=== PATIENT | female | born 1975 | race Caucasian/White ===

== ENCOUNTER 2019-02-16 03:31 | Emergency (ER) | payer MEDICAID, SELFPAY ==
[2019-02-16 03:32] VITALS: BP 165/94; PULSE 82; RESP 15; TEMP 36.8; O2SAT 97; BMI 45.6
[2019-02-16 04:07] VITALS: BP 164/94; PULSE 82; RESP 15; O2SAT 97
--- NOTE | 2019-02-16 04:08 | ED.VISSUMM ---
- ER Visit Summary Date of Service: 02/16/19 Chief Complaint: Dental pain, decay and right facial swelling History of Present Illness: The patient is a 43 F no C significant past medical history other than prior kidney stones and a prior intracranial bleed. Patient states she has very poor dentition does not go to the doctor or have a dentist. States she is had dental pain the last several days. She is tried home remedies and is only gotten worse. She now some mild right facial swelling. No trouble breathing or swallowing. No fever. Physical Examination: White female no acute distress vital signs stable afebrile. HEENT exam mild swelling her right cheek. She has multiple missing teeth. Multiple decayed teeth multiple areas of the gum are swollen. No drainable abscess. No trismus. Floor of her mouth is unremarkable. Posterior pharynx is normal. Neck nontender. No submental tenderness or fullness. No lymphadenopathy. Trachea midline. Lungs are clear to auscultation bilaterally. Heart regular rhythm no murmur. Abdomen is soft. Otherwise exam unremarkable. Test Results: None Emergency Department Course and Treatment: Patient has obvious dental decay, cavities and gingivitis. She will be placed on clindamycin 300 mg 4 times daily for 10 days. Instructed to follow-up with a dentist. Tylenol Motrin for pain. She has a severe penicillin allergy. Treatment Plan: Clindamycin 4 times daily for 10 days. Tylenol and Motrin for pain. See a dentist. Warm salt water gargling. Disposition: Discharge Impression: Acute dental pain Acute dental caries, decay and gingivitis This note was generated with [employer] dictation software. It may contain incorrect words, spelling, and punctuation that were not noted in review of the chart prior to signing ED Disposition - Plan for ED Patient: Referrals: Care Physician,No Primary [Primary Care Provider] -
--- NOTE | 2019-02-16 04:10 | ED.DEP ---
ED Disposition - Plan for ED Patient: Disposition: Home or Assisted Living Instructions: Dental Pain, Dental Cavity, Dental Abscess Prescriptions: Clindamycin HCl [Cleocin] 300 mg PO Q6H #40 cap Prescription Printed Referrals: Joselin Murry [NON-STAFF] - As soon as possible Additional Instructions: Warm salt water gargling. See a dentist as soon as possible to start [facility]. Tylenol and Motrin for pain. Clindamycin the antibiotic 1 pill 4 times a day for 10 days.
[2019-02-16] MEDS: Clindamycin HCl 150 MG Capsule 300 MG PO (04:16)
== END 2019-02-16 04:26 | disposition home or self-care (01) ==
LOC: ED 04:24
PROVIDERS: Emergency Provider Emergency Medicine
DX: K05.10 Chronic gingivitis, plaque induced (principal); K02.9 Dental caries, unspecified; Z86.73 Personal history of transient ischemic attack (TIA), and cerebral infarction without residual deficits; Z87.442 Personal history of urinary calculi
CPT/HCPCS: 99283

== ENCOUNTER 2019-08-26 16:55 | Emergency (ER) | payer MEDICAID, SELFPAY ==
[2019-07-17 11:05] VITALS: BMI 45.6
[2019-08-26 16:55] VITALS: BP 160/76; PULSE 92; RESP 18; TEMP 36.7; O2SAT 97; BMI 43.2
[2019-08-26 18:01] VITALS: O2SAT 98
--- NOTE | 2019-08-26 18:05 | RAD_ITS ---
STUDY: X-RAY CHEST REASON FOR EXAM: Female, 44 years old. Fever. COVID exposure. TECHNIQUE: Frontal view of the chest COMPARISON: None. FINDINGS: There is patchy airspace opacity in the left mid to lower lung field. The lungs are otherwise clear. There are no pleural effusions. There is no pneumothorax. The heart is normal in size. The visualized osseous structures are within normal limits. RAD/Chest 1 View (Portable) IMPRESSION: Patchy airspace opacity in the left mid to lower lung field. COVID infection should be excluded. Electronically Signed: Darin Downing, at 18:31 EDT Tel , Service support ,
[2019-08-26 18:18] LABS: Absolute Lymphocyte Count 1.58 X10^3/uL (0.83-4.51); Absolute Neutrophil Count 3.4 X10^3/uL (2.0-7.7); Basophil# 0.02 X10^3/uL; Basophil% 0.4 % (0-1); Eosinophil# 0.07 X10^3/uL; Eosinophils% 1.2 % (0-5); Hematocrit 45.4 % (37-47); Hemoglobin 13.8 g/dL (12.0-15.0); Lymphocyte # 1.58 X10^3/ul (4.0); Lymphocyte % 28.2 % (19-41); Mean Corp Hgb Conc 30.4 g/dL (32-36); Mean Corpuscular Hgb 24.6 pg (27.0-32.0); Mean Corpuscular Volume 81.1 fL (81-99); Monocyte# 0.53 X10^3/uL; Monocyte% 9.4 % (0-10); NRBC Flagged by Analyzer 0 % (0-5); Neutrophil # 3.39 X10^3/uL (2.7-7.7); Neutrophil % 60.4 % (47-70); Platelet Count 276 K/mm3 (150-450); RBC Distribution Width CV 14.3 % (11.6-14.6); RBC Distribution Width SD 42.2 fl (35.1-43.9); White Blood Count 5.6 K/mm3 (4.4-11.0)
[2019-08-26 18:37] LABS: D-Dimer Quantitative (DVT/PE) 0.72 FEU/ug/m (0.27-0.49)
--- NOTE | 2019-08-26 18:38 | ED.VISSUMM ---
- ER Visit Summary Date of Service: 08/26/19 Chief Complaint: Cough History of Present Illness: The patient is a 44 F with no primary care physician. She reports that her daughter was diagnosed with COVID-19. She is been quarantined for 10 days. She has a cough began 4 days ago. She is not coughing anything up. She complains of a fever to 104 degrees and chills. She denies sore throat. She does report that she has moderate shortness of breath currently and severe at worst. This is worsened with walking around. She is had nausea without vomiting. She reports she is had diarrhea 3 times today. She reports that she has a headache on and off. She complains of generalized weakness and myalgias. Physical Examination: Vitals: Stable. Afebrile. General: Well-nourished and well-developed. Head: Normocephalic atraumatic. Neck: Supple, no lymphadenopathy. No JVD. Nontender. Cardiovascular: Regular rate and rhythm. No murmurs. Respiratory: No respiratory distress. Clear to auscultation bilaterally. Abdominal: Soft, nontender, nondistended, normal bowel sounds. No guarding, rebound, or peritoneal signs. Back: Nontender. Extremities: Nontender, no edema. Skin: Normal color, no rash. Neurologic: Alert and oriented ?3. Cranial nerves II through XII are intact. Normal strength and sensation. Psych: Normal affect. Test Results: CBC is normal. Chem-7 is normal. LFTs show globulin of 4.8 and AST of 38. D-dimer is 0.72. COVID is negative. Clinical Impression(s) from Imaging Studies Chest X-Ray 08/26/19 18:05 IMPRESSION: Patchy airspace opacity in the left mid to lower lung field. COVID infection should be excluded. Electronically Signed: Darin Downing, at 18:31 EDT Tel , Service support , Chest CTA 08/26/19 18:39 IMPRESSION: Patchy peripheral airspace opacity in the lingula and left lower lobe and, to a lesser extent, the right lung apex. This likely represents COVID pneumonia. No evidence pulmonary embolus. No evidence of thoracic aortic aneurysm or dissection. Large hiatal hernia. Hepatosplenomegaly with fatty infiltration of the liver. Electronically Signed: Darin Downing, at 19:44 EDT Tel , Service support , Emergency Department Course and Treatment: Patient refused pain medications. She is resting comfortably. She is not hypoxic. I feel that her COVID is a false negative. Her CT is classic for COVID-19. Treatment Plan: Patient will be discharged with instructions to quarantine for the next 2 weeks. Instructed on symptomatic care. Follow-up with Dr. Willis in 2 weeks if not improving. Return to the emergency department for any worsening symptoms. Disposition: To home in improved and stable condition. Impression: 1. COVID-19 infection. This note was generated with [employer] dictation software. It may contain incorrect words, spelling, and punctuation that were not noted in review of the chart prior to signing ED Disposition - Plan for ED Patient: Disposition: Home or Assisted Living Instructions: ED Upper Resp Infec No Abx Tx Referrals: Yimi Linder MD [STAFF PHYSICIAN] - 10-14 Days if not better
--- NOTE | 2019-08-26 18:39 | CT_ITS ---
STUDY: CTA CHEST REASON FOR EXAM: Female, 44 years old. ELEVATED D-DIMER, PT DAUGHTER HAS COVID, PT HAS SOB, FATIGUE, CHILLS,FEVER RADIATION DOSAGE (If Supplied By Facility): CTDIvol = ( 17.42 ) mGy, DLP = ( 512.55 ) mGycm TECHNIQUE: The examination was performed with the intravenous administration of 100ML ISOVUE 300. Post-processing of the angiographic images was performed, with multiplanar reformation and 3D reconstruction. Individualized dose optimization techniques were used for this CT. COMPARISON: None. FINDINGS: There is no evidence of pulmonary embolus. There is no evidence of thoracic aortic aneurysm or dissection. The heart and pericardium are within normal limits. There is no thoracic lymphadenopathy. There is patchy peripheral airspace opacity in the lingula and left lower lobe and, to a lesser extent, the right lung apex. There are no focal infiltrates. There are no pleural effusions. There is no pneumothorax. There is a large hiatal hernia noted. Images through the upper abdomen demonstrate hepatosplenomegaly with fatty infiltration of the liver. There are no destructive osseous lesions. CT/CTA Chest W/WO Contrast IMPRESSION: Patchy peripheral airspace opacity in the lingula and left lower lobe and, to a lesser extent, the right lung apex. This likely represents COVID pneumonia. No evidence pulmonary embolus. No evidence of thoracic aortic aneurysm or dissection. Large hiatal hernia. Hepatosplenomegaly with fatty infiltration of the liver. Electronically Signed: Darin Downing, at 19:44 EDT Tel , Service support ,
[2019-08-26 18:42] LABS: ALB/GLOB Ratio 0.7 RATIO (0.9-2.4); AST(SGOT) 38 U/L (15-37); Alanine Aminotransfer ALT/SGPT 56 U/L (13-56); Albumin, Serum 3.4 g/dL (3.2-5.0); Alkaline Phosphatase 72 U/L (45-117); Anion Gap 5 (5-15); BUN 10 mg/dL (7-18); BUN/Creat Ratio 10.4 RATIO (10-20); Calcium,Total 8.6 mg/dL (8.5-10.1); Chloride 107 mmol/L (98-107); Creatinine, Serum 0.96 mg/dL (0.55-1.02); EST Glomerular Filtration Rate 67 mL/min (>60); Est Glom Filt Rate - Afr Amer 81 mL/min (>60); Estimated Creatinine Clearance 70.74 ml/min; Globulin 4.8 g/dL (2.2-4.2); Glucose 98 mg/dL (74-106); Potassium 3.5 mmol/L (3.5-5.1); Protein, Total 8.2 g/dL (6.4-8.2); Sodium Level 141 mmol/L (136-145)
[2019-08-26 18:55] VITALS: BP 119/88; PULSE 86; RESP 22; O2SAT 97
[2019-08-26 20:41] VITALS: BP 116/71; PULSE 83; RESP 17; O2SAT 99
== END 2019-08-26 20:43 | disposition home or self-care (01) ==
LOC: ED 17:28
PROVIDERS: Emergency Provider Emergency Medicine
DX: U07.1 COVID-19 (principal); Z72.0 Tobacco use
CPT/HCPCS: 71045; 71275; 80053; 83605; 85025; 85379; 87040; 87635; 94799; 99284; G2023; Q9967; A4216; U0003

== ENCOUNTER 2020-01-08 | Emergency (ER) | payer MEDICAID, SELFPAY ==
[2020-01-08 00:01] VITALS: BP 166/89; PULSE 105; RESP 18; TEMP 36.3; O2SAT 100; BMI 44.2
[2020-01-08 00:08] VITALS: BP 166/89; PULSE 105; RESP 18; TEMP 36.3; O2SAT 100
--- NOTE | 2020-01-08 00:08 | ED.DCSUM_ITS ---
History of Present Illness Chief Complaint: Dental Informant: Patient Onset: Days Context: Gradual Onset Timing: Continuous Current Severity: Moderate Maximum Severity: Moderate Narrative: The patient is a 44-year-old female who presents to the emergency department dental abscess. She states that she has had pain intermittently for months. She states that she has widespread dental disease. Over the past 3 days, she is had worsening pain in her right upper jaw underneath her nose. She feels like she has an abscess. She denies any fevers or chills. She states is worse with hot and cold liquids. She denies any trouble speaking or swallowing. She states she does have severe penicillin allergy. She tried to get into dentistry recently, but has not been able to establish an appointment. Prior similar symptoms: Yes Recent Illness/Hospitalization: No Past Medical History - Allergies and Home Meds Allergies/Adverse Reactions: Allergies Penicillins Allergy (Severe, Verified 08/26/19 16:57) Anaphylaxis Primary Care Physician: Greg Angeles DO [Primary Care Provider] - Prior records reviewed: Yes Past Medical History: None Surgical History: noncontributory Smoking Status: Never smoker Review of Systems General: Denies: Chills, Fever, Sweats Eyes: Denies: Visual changes - bilaterally, Diplopia ENT: Denies: Rhinorrhea, Sore throat Cardiovascular: Denies: Chest pain, Palpitations Respiratory: Denies: Dyspnea, Cough, Dyspnea on exertion Gastrointestinal: Denies: Abdominal pain, Nausea, Vomiting, Diarrhea, Melena, Hematochezia Genitourinary: Denies: Dysuria, Hematuria, Frequency Musculoskeletal: Denies: Back pain, Extremity Pain Skin: Denies: Rash, Wounds Neurological: Denies: Headache, Weakness, Numbness Physical Exam Vital Signs/Narrative: Vital Signs Temp Pulse Resp BP Pulse Ox 01/08/20 00:01 97.3 F L 105 H 18 166/89 H 100 Inital Vital Signs reviewed: Yes General: Well nourished, Well developed, No Acute Distress Head: Normocephalic, Atraumatic Eyes: Perrl, EOMI ENT: Moist mucous membranes, No rhinorrhea, - - Patient has rather significant widespread dental disease. There is a mild erythema over tooth 7 and 8. There is no focal abscess. The submental space is soft. No trismus or stridor. Neck: Supple, Nontender Cardiovascular: Regular rate, Regular rhythm, No murmurs Respiratory: No distress, CTA bilaterally, Chest nontender Abdomen: Soft, Nontender, Nondistended, Normal bowel sounds Back: Nontender, Normal Inspection Extremities: Nontender, No edema Skin: Normal color, No rash Neurological: Alert, Oriented x3, Cranial nerves II-XII grossly intact, Normal Strength, Normal Sensation Psychological: Normal affect, Normal Mood Diagnostic/Tx/Re-eval - Medical Decision Making Patient has dental pain with widespread dental disease. She has significant cavity shows teeth. There is no evidence of focal abscess, but she is tender in the gumline of tooth 7 and 8 with significant cavity. Patient is given a dose of [place] and clindamycin. She will be kept on clindamycin and Naprosyn. She will be given outpatient dental follow-up. She will be discharged home. Impression 1. Periapical dental abscess ED Disposition - Plan for ED Patient: Instructions: Dental Abscess Prescriptions: Clindamycin [Cleocin] 300 mg PO 4X/DAY #80 cap Prescription Printed Naproxen [Naprosyn] 500 mg PO BID PRN #20 tab Prescription Printed Referrals: Greg Angeles DO [Primary Care Provider] -
[2020-01-08] MEDS: HYDROcodone Bitartrate/Apap 5/325 Tablet PO (00:17)
[2020-01-08] MEDS: Clindamycin HCl 150 MG Capsule 300 MG PO (00:17)
== END 2020-01-08 00:23 | disposition home or self-care (01) ==
LOC: ED 00:21
PROVIDERS: Emergency Provider Emergency Medicine; PCP Student in an Organized Health Care Education/Training Program
DX: K04.7 Periapical abscess without sinus (principal); Z88.0 Allergy status to penicillin
CPT/HCPCS: 99283

== ENCOUNTER 2020-01-16 22:41 | Emergency (ER) | payer MEDICAID, SELFPAY ==
[2020-01-16 22:43] VITALS: BP 194/115; PULSE 114; RESP 18; TEMP 36.1; O2SAT 99; BMI 44.4
--- NOTE | 2020-01-16 23:01 | ED.VIS.GEN ---
History of Present Illness Chief Complaint: Dental Informant: Patient Onset: Weeks Context: Gradual Onset Current Severity: Moderate Maximum Severity: Moderate Narrative: Patient presents with continued dental pain. She was seen here approximate 1 week ago secondary to a developing dental abscess. She was placed on clindamycin. She does have an allergy to penicillin. Patient states that she has called multiple dental clinics and cannot be seen until March. This evening she noted some swelling to her right upper lip pain along her right maxilla. She has been taking Tylenol and naproxen for pain. - Past Medical History (1) Anxiety and depression Status: Chronic Past Medical History - Allergies and Home Meds Allergies/Adverse Reactions: Allergies Penicillins Allergy (Severe, Verified 08/26/19 16:57) Anaphylaxis Primary Care Physician: Greg Angeles DO [Primary Care Provider] - Surgical History: noncontributory Smoking Status: Never smoker Review of Systems General: Denies: Chills, Fever Eyes: Denies: Visual changes - bilaterally ENT: Reports: - - Dental pain and facial swelling. Denies: Bilateral ear pain Cardiovascular: Denies: Chest pain Respiratory: Denies: Dyspnea, Cough Gastrointestinal: Denies: Abdominal pain, Vomiting, Diarrhea Skin: Denies: Rash Neurological: Denies: Headache Hematologic: Denies: Easy bruising, Easy bleeding Allergy: Denies: Uticaria Physical Exam Vital Signs/Narrative: Vital Signs Temp Pulse Resp BP Pulse Ox 01/16/20 22:43 97 F L 114 H 18 194/115 H 99 Inital Vital Signs reviewed: Yes General: Well nourished, Well developed Head: Normocephalic ENT: Moist mucous membranes, - - Multiple dental caries. Inflammation of the gums above the right maxillary central incisor. No palpable abscess. Mild facial edema on the right. No erythema. Posterior pharynx exam is normal. Neck: Supple Cardiovascular: Regular rate, Regular rhythm Respiratory: No distress, CTA bilaterally Abdomen: Soft, Nontender Extremities: Nontender Skin: Normal color Neurological: Alert, Oriented x3 Diagnostic/Tx/Re-eval - Medical Decision Making Patient does have an allergy to penicillin and is already on clindamycin. We will add doxycycline to help cover necrotizing gingivitis as a possible cause of her worsened symptoms. This will also help cover sinuses. Patient will be given a dose of [place] and doxycycline here and will be given prescriptions for the same. I will leave a message for social work to see if they can touch base with [facility] about their dental care and seeing ER patients. Patient was told she could not be seen there until next June. ED Disposition - Plan for ED Patient: Disposition: Home or Assisted Living Diagnosis: Odontalgia Instructions: ED Dental Pain, Dental Abscess Prescriptions: Doxycycline 100 mg PO BID #20 cap Transmission Status: Pending to [id number] Hydrocodone Bitart/Apap 5-325 [[place] 5MG-325MG] 1 tablet PO Q4H PRN PRN 2 Days #10 tablet PRN Reason: Pain Transmission Status: Received by [id number] Referrals: Greg Angeles DO [Primary Care Provider] -
[2020-01-16] MEDS: HYDROcodone Bitartrate/Apap 5/325 Tablet PO (23:25)
[2020-01-16] MEDS: Doxycycline 100 MG CAPSULE PO (23:25)
[2020-01-16 23:29] VITALS: BP 195/111; PULSE 79; RESP 15; O2SAT 100
== END 2020-01-16 23:39 | disposition home or self-care (01) ==
LOC: ED 23:13
PROVIDERS: Emergency Provider Emergency Medicine; PCP Student in an Organized Health Care Education/Training Program
DX: K08.89 Other specified disorders of teeth and supporting structures (principal); K02.9 Dental caries, unspecified; F41.9 Anxiety disorder, unspecified; F32.9 Major depressive disorder, single episode, unspecified; Z88.0 Allergy status to penicillin
CPT/HCPCS: 99283

== ENCOUNTER 2022-01-30 11:34 | Emergency (ER) | payer MEDICAID, SELFPAY ==
[2022-01-30 11:37] VITALS: BP 144/101; PULSE 90; RESP 14; TEMP 36.8; O2SAT 99; BMI 48.0
--- NOTE | 2022-01-30 11:55 | RAD_ITS ---
STUDY: X-RAY CHEST REASON FOR EXAM: Female, 46 years old. Cough, left-sided pleuritic chest pain TECHNIQUE: Single AP portable view of the chest. COMPARISON: 08/26/2019 FINDINGS: The lungs are clear and expanded. There is no demonstrated pleural abnormality. Normal size heart. Normal mediastinum and jd. Normal visualized pulmonary arteries. Normal visualized aortic arch and descending thoracic aorta. Normal visualized thoracic spine. Normal visualized ribs, clavicles, and shoulders. There is no demonstrated abnormality of the visualized soft tissue structures of the upper abdomen. RAD/Chest PA and Lateral IMPRESSION: Normal x-ray examination of the chest. Electronically Signed: Angel Lucio MD at 13:07 EST ,
--- NOTE | 2022-01-30 11:55 | EX.ED.DYSGE1 ---
HPI History of Present Illness Chief Complaint: Other, Pain/Inj Detail of Chief Complaint: Cough since Thanksgiving and pleuritic chest pain Informant: patient Onset/Context/Timing Onset: Weeks Context: Sudden Onset Timing: Intermittent Quality: Pleuritic Location: Left-sided chest near the outer inferior and superior quadrant of left naveen Current Severity: Mild Maximum Severity: Moderate Worsened by: Coughing, breathing and movement Relieved by: Nothing Associated Symptoms Associated Symptoms: Upper respiratory symptoms Narrative Narrative: Patient is a 46-year-old woman with history of obesity, -induced hypertension and depression with anxiety who presents with cough that started a week of Thanksgiving. The cough is essentially nonproductive. When it is productive sputum is green-colored. She denies history of PE or DVT. She is on hormonal therapy. She has had no recent surgery. She is had no recent travel. Patient does report mild congestion. She denies GI symptoms. She denies symptoms. Denies leg pain, swelling discoloration. Prior similar symptoms: Yes Recent Illness/Hospitalization: No PFSH PFSH Medical History (Updated 01/30/22 @ 13:[address] Horacio Osman MD) Anxiety with depression Brain bleed Home Medications clindamycin HCl 150 mg capsule 300 mg PO 4X/DAY #80 caps 01/08/20 [Rx Last Taken Unknown] naproxen 500 mg tablet 500 mg PO BID PRN #20 tabs 01/08/20 [Rx Last Taken Unknown] doxycycline monohydrate 100 mg capsule 100 mg PO BID #20 caps 01/16/20 [Rx Last Taken Unknown] doxycycline monohydrate 100 mg capsule 100 mg PO BID #10 CAPSULES 01/30/22 [Rx Last Taken Unknown] naproxen 500 mg tablet 500 mg PO BID #14 tabs 01/30/22 [Rx Last Taken Unknown] Allergy/AdvReac Type Severity Reaction Status Date / Time Penicillins Allergy Severe Anaphylaxis Verified 01/30/22 11:36 Family History Mother Cancer Other Diabetes Hypertension Surgical History H/O lithotripsy Social History (Updated 01/30/22 @ 11:[address] 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 ; Denies ear pain Cardiovascular Cardiovascular: Reports chest pain; Denies orthopnea, palpitations or paroxysmal nocturnal dyspnea Respiratory/Chest Respiratory/Chest: Reports cough; Denies dyspnea, dyspnea on exertion, orthopnea, paroxysmal nocturnal dyspnea or sputum Gastrointestinal Gastrointestinal: Denies abdominal pain, nausea or vomiting Genitourinary Genitourinary ED: Denies dysuria, hematuria or urinary frequency Musculoskeletal Musculoskeletal: Denies arthralgias, myalgias or neck pain Integumentary Denies Abrasions or rash Neurologic Neurologic: Denies headache(s), paresthesias or weakness Hematologic/Lymphatic Hematologic/Lymphatic: Reports systems reviewed and no addt'l complaints, except as documented EXAM Physical Exam Const Vital Signs: 01/30/22 11:37 Temperature 98.2 F Temperature Source Temporal Pulse Rate 90 Respiratory Rate 14 Blood Pressure 144/101 H Blood Pressure Mean 115 Pulse Ox 99 Oxygen Delivery Method Room Air Positive well nourished, well developed and obese Constitutional Narrative: Patient does have an nonproductive cough. General Appearance ED: well developed and NAD; Negative for cyanotic or diaphoretic Nutritional Appearance: obese HEENT Reports moist mucous membranes HEENT Narrative: Uvula midline. No erythema exudate the posterior pharynx. Head is atraumatic normocephalic. Ears are normal. Eyes PERRL and EOMs intact bilaterally General Eye ED: Negative for pale conjunctiva or scleral icterus Neck no lymphadenopathy, supple and no JVD Chest Wall inspection of chest normal and palpation of chest normal Resp normal respiratory effort and No clear to auscultation bilaterally Resp Narrative: Patient does splint with deep breathing. Auscultation: rales left base Cardio regular rate, regular rhythm, S1 normal heart sound, S2 normal heart sound and no murmurs GI normal to inspection, nondistended, normoactive bowel sounds, non-tender, non-distended and no masses; Negative for hepatosplenomegaly Back/Spine no CVA tenderness Extremity normal to inspection Extremity Narrative: There is no asymmetry, swelling, discoloration, leg vein distention, palpable cords or tenderness along the distribution of the deep venous system. Neuro oriented x3, CN's II-XII intact bilaterally and no sensory deficits noted Sensorium / Orientation: alert Motor Exam: strength 5/5 throughout Psych mental status grossly normal Skin no rashes or lesions noted, no wounds and skin turgor normal MDM MDM MDM Narrative Medical decision making narrative: Since patient has pleuritic chest pain and rales left base chest x-ray obtained to rule out pneumonia. Patient has pleurisy. D-dimer was not obtained since patient is PERC negative. Furthermore she is not hypoxic nor tachypneic. Patient was treated for bronchitis with doxycycline since she has had a cough for approximately 3 weeks. She also was treated with Naprosyn for her pleuritic chest pain Radiography Chest X-Ray - ED: 2 View and Read by ED Physician (2 view chest x-ray independently reviewed and interpreted by me as negative. Cardiac silhouette size normal. Perihilar region normal. Lung parenchyma normal. Osseous structures are normal.) Diagnostic Testing: Clinical Impression(s) from Imaging Studies Chest X-Ray 01/30/22 11:55 IMPRESSION: Normal x-ray examination of the chest. Electronically Signed: Angel Lucio MD at 13:07 EST , Discharge Plan Triage Chief Complaint: Other, Pain/Inj ED Provider: Horacio Osman Dx/Rx/DC Orders Clinical Impression: Bronchitis, Chest pain, pleuritic Instructions: ED Upper Resp Infec Abx Tx, ED Pleurisy Prescriptions: New doxycycline monohydrate 100 mg capsule 100 mg PO BID Qty: 10 0RF naproxen 500 mg tablet 500 mg PO BID Qty: 14 0RF No Action clindamycin HCl 150 MG capsule 300 mg PO 4X/DAY Qty: 80 0RF naproxen 500 MG tablet 500 mg PO BID PRN Qty: 20 0RF doxycycline monohydrate 100 MG capsule 100 mg PO BID Qty: 20 0RF Primary Care Provider: Care Physician,No Primary Referrals: Greg Angeles DO [Non-Staff] - 3-5 Days if not improving Disposition Disposition: Home, Self Care
[2022-01-30] MEDS: Naproxen 250 MG Tablet 500 MG PO ×2 (13:09→13:41)
--- NOTE | 2022-01-30 13:11 | ED.RN ---
This nurse taking over care for patient at this time
[2022-01-30] MEDS: Doxycycline 100 MG CAPSULE PO (13:41)
[2022-01-30 13:42] VITALS: BP 130/80; PULSE 95; RESP 18; O2SAT 99
== END 2022-01-30 13:42 | disposition home or self-care (01) ==
PROVIDERS: Emergency Provider Emergency Medicine; Visit Provider Emergency Medicine
DX: J40 Bronchitis, not specified as acute or chronic (principal); F17.210 Nicotine dependence, cigarettes, uncomplicated; R07.81 Pleurodynia
CPT/HCPCS: 71046; 99284

== ENCOUNTER 2022-11-04 21:14 | Emergency (ER) | payer MEDICAID, SELFPAY ==
[2022-11-04 21:24] VITALS: BP 110/63; PULSE 92; RESP 20; TEMP 36.2; O2SAT 94
--- NOTE | 2022-11-04 21:58 | CT_ITS ---
INDICATION: mental status change EXAMINATION: CT BRAIN - CT Head or Brain W/O Contrast Injection TECHNIQUE: Multiple axial images were obtained of the head without intravenous contrast. A radiation dose optimization technique was used for this scan. IV Contrast dosage and agent: None. COMPARISON: March 01, 2015 FINDINGS: BRAIN PARENCHYMA: No intra- or extra-axial hemorrhage. No evidence of acute infarct. No intracranial mass or mass effect. There is preservation of the self/white matter interface. Posterior fossa structures are unremarkable. CSF SPACES: Appropriate for age. No hydrocephalus. Basal cisterns are patent. CALVARIUM, SKULL BASE, PARANASAL SINUSES AND MASTOID AIR CELLS: High attenuation material identified within the right nasal cavity and within the right maxillary sinus with there is some mucoperiosteal thickening. Hyperdensity anterior right ethmoid sinus. Sphenoid sinuses are clear. Mastoid air cells are clear. ORBITS: Both globes, extraocular muscles, optic nerves and retrobulbar fat appear unremarkable. CT/Brain/Head without Contrast IMPRESSION: No acute intracranial hemorrhage detected. No mass lesion. Sinus disease compared to prior study. This is somewhat high density which could reflect inspissated secretions or fungal colonization. Electronically Signed: Carroll Melvin MD at 23:00 EDT ,
--- NOTE | 2022-11-04 21:59 | EKG12_ITS ---
Test Reason : Blood Pressure : / mmHG Vent. Rate : 087 BPM Atrial Rate : 087 BPM P-R Int : 178 ms QRS Dur : 090 ms QT Int : 380 ms P-R-T Axes : 047 017 041 degrees QTc Int : 457 ms Normal sinus rhythm with sinus arrhythmia Septal infarct , age undetermined Abnormal ECG Confirmed by BIANKA POSEY, MINDY ([id number]), scientific publications editor TINY NAYAK ([id number]) on 11/07/2022 2:39:56 PM Referred By: Confirmed By:MINDY CARLTON MD
[2022-11-04 22:03] VITALS: BP 137/86; PULSE 87; RESP 15; O2SAT 97
[2022-11-04] MEDS: 0.9% Normal Saline (500mL Bag) 500 ML 999 ML IV (22:21)
--- NOTE | 2022-11-04 22:32 | RAD_ITS ---
INDICATION: sob EXAMINATION/TECHNIQUE: X-RAY - XR Chest 1 View COMPARISON: January 30, 2022. FINDINGS: Cardiac silhouette and mediastinal contours are stable. Retrocardiac lucency suggests large hiatus hernia. This patient is somewhat rotated. Spinal curvature convex rightward. Lung volumes are also low and this accentuates the interstitium. Left basilar opacity is linear and is presumably atelectasis. RAD/Chest 1 View (Portable) IMPRESSION: Hiatus hernia. Low volumes. Presumed left basilar atelectasis. Electronically Signed: Carroll Melvin MD at 23:05 EDT ,
[2022-11-04 22:49] LABS: Alcohol, Blood (Medical)-Serum < 3.0 mg/dL
[2022-11-04 22:57] LABS: Internal QC Validated? YES +Cl - CLEAR BKGD; Pregnancy, Serum, hCG Quali. NEGATIVE Negative
[2022-11-04 23:04] LABS: AST(SGOT) 14 U/L (15-37); Alanine Aminotransfer ALT/SGPT 22 U/L (13-56); Albumin, Serum 3.3 g/dL (3.2-5.0); Alkaline Phosphatase 81 U/L (45-117); Anion Gap 6 (5-15); BUN 17 mg/dL (7-18); Bilirubin, Direct < 0.05 mg/dL (0.00-0.30); Calcium,Total 8.3 mg/dL (8.5-10.1); Chloride 108 mmol/L (98-107); Creatinine, Serum 1.06 mg/dL (0.55-1.02); EST Glomerular Filtration Rate 59 mL/min (>60); Est Glom Filt Rate - Afr Amer 72 mL/min (>60); Globulin 4.4 g/dL (2.2-4.2); Glucose 166 mg/dL (74-106); Lipase 22 U/L (13-75); Potassium 4.3 mmol/L (3.5-5.1); Protein, Total 7.7 g/dL (6.4-8.2); Sodium Level 139 mmol/L (136-145); Troponin-I HS < 3 pg/mL (3.0-54.0)
[2022-11-05 00:06] LABS: Color, Urine Yellow (Yellow); Glucose, Dipstick Normal (Normal); Ketone-Dipstick 5 mg/dl (Negative); Leukocyte Esterase-Dipstick 100 /ul (Negative); Mucous, Urine 0 SEEN /hpf (<or=2+); Nitrite-Dipstick Negative (Negative); Occult Blood-Urine 10 /ul (Negative); Protein-Dipstick 15 mg/dl (Negative); Red Blood Cells-Urine 0 SEEN /hpf (0-5); Urine Bilirubin Dipstick Negative (Negative); Urine Clarity Clear (Clear); Urine Urobilinogen Normal (Normal)
--- NOTE | 2022-11-05 00:19 | EX.ED.DYSGE1 ---
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 Her father and daughter are at bedside. 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 Nursing staff tells me that when the patient came in she told them that one of the patrons at the bar gave her an edible gummy that she ate. Shortly after this she started feeling lightheaded and weak. She reportedly went to the end of the bar and laid her head down. [facility] Medical History (Updated 11/05/22 @ 00:[address] Kiersten Fernández MD) Anxiety with depression Brain bleed Home Medications clindamycin HCl 150 mg capsule 300 mg (2 x 150 mg) PO 4X/DAY #80 caps 01/08/20 [Rx Last Taken Unknown] naproxen 500 mg tablet 500 mg PO BID PRN #20 tabs 01/08/20 [Rx Last Taken Unknown] doxycycline monohydrate 100 mg capsule 100 mg PO BID #20 caps 01/16/20 [Rx Last Taken Unknown] doxycycline monohydrate 100 mg capsule 100 mg PO BID #10 CAPSULES 01/30/22 [Rx Last Taken Unknown] naproxen 500 mg tablet 500 mg PO BID #14 tabs 01/30/22 [Rx Last Taken Unknown] Allergy/AdvReac Type Severity Reaction Status Date / Time Penicillins Allergy Severe Anaphylaxis Verified 01/30/22 11:36 Family History Mother Cancer Other Diabetes Hypertension Surgical History H/O lithotripsy Social History household members: spouse and children Smoking Status: Current some day smoker tobacco type: cigarettes alcohol intake: current substance use type: does not use caffeine: Yes what type of physical activity do you participate in: walking seatbelt use: always do you feel safe at home: Yes additional social history: Rishi- 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 Chest Wall inspection of chest normal and palpation of chest normal Resp normal respiratory effort and clear to auscultation bilaterally Cardio regular rate and regular rhythm GI non-tender Auscultation: hypoactive bowel sounds Palpation: soft Extremity normal to inspection Neuro Neuro Narrative: Patient rests with eyes closed. She will follow some commands but is not really answering questions for me. Skin no rashes or lesions noted MDM MDM MDM Narrative Medical decision making narrative: Patient is placed on monitoring analyst. EKG obtained to evaluate for cardiac arrhythmia/ischemia. Labwork obtained to evaluate for leukocytosis, anemia, and electrolyte derangement. Urinalysis obtained to evaluate for infection/hematuria. EtOH and tox screen obtained. Patient sent for head CT given altered mental status and history of a brain bleed. (Daughter states brain bleed occurred after an epidural was given.) History & Record Review Discussion w/independent historian: EMS personnel and Family Lab Data Attestation: I reviewed the patient's lab results. Labs: Laboratory Results - last 24 hr 11/04/22 11/04/22 11/04/22 22:25 22:25 23:58 WBC Cancelled Corrected WBC Cancelled RBC Cancelled Hgb Cancelled Hct Cancelled MCV Cancelled MCH Cancelled MCHC Cancelled RDW Std Deviation Cancelled RDW Coeff of Farshad Cancelled Plt Count Cancelled MPV Cancelled Immature Gran % (Auto) Cancelled Neut % (Auto) Cancelled Lymph % (Auto) Cancelled [place] % (Auto) Cancelled Eos % (Auto) Cancelled Baso % (Auto) Cancelled Absolute Neuts (auto) Cancelled Absolute Lymphs (auto) Cancelled Total Counted Cancelled Neutrophils % (Manual) Cancelled Band Neutrophils % Cancelled Lymphocytes % (Manual) Cancelled Monocytes % (Manual) Cancelled Eosinophils % (Manual) Cancelled Basophils % (Manual) Cancelled Metamyelocytes % Cancelled Myelocytes % Cancelled Promyelocytes % Cancelled Blast Cells % Cancelled Plasma Cell % (Manual) Cancelled Other Cells % Cancelled Nucleated RBC % Cancelled Nucleated RBCs/100 WBC Cancelled Differential Comment Cancelled Diff Path Review Cancelled Hypersegmented Neuts Cancelled Atypical Lymphocytes Cancelled Reactive Lymphocytes Cancelled Smudge Cells Cancelled Toxic Granulation Cancelled Toxic Vacuolation Cancelled Dohle Bodies Cancelled Miles Rods Cancelled Platelet Estimate Cancelled Plt Morphology Comment Cancelled RBC Morphology Cancelled Cancelled Polychromasia Cancelled Hypochromasia Cancelled Poikilocytosis Cancelled Basophilic Stippling Cancelled Anisocytosis Cancelled Microcytosis Cancelled Macrocytosis Cancelled Spherocytes Cancelled Sickle Cells Cancelled Target Cells Cancelled Tear Drop Cells Cancelled Ovalocytes Cancelled Stomatocytes Cancelled [place] Bodies Cancelled Corn Cells Cancelled Bite Cells Cancelled Crenated Cell Cancelled Acanthocytes (Spur) Cancelled Rouleaux Cancelled Schistocytes Cancelled Sodium 139 Potassium 4.3 Chloride 108 H Carbon Dioxide 25.0 Anion Gap 6 BUN 17 Creatinine 1.06 H Est GFR (MDRD) Af Amer 72 Est GFR (MDRD) Non-Af 59 L BUN/Creatinine Ratio 16.0 Glucose 166 H Calcium 8.3 L Total Bilirubin 0.10 L Direct Bilirubin < 0.05 AST 14 L ALT 22 Alkaline Phosphatase 81 Troponin I High Sens < 3 L Total Protein 7.7 Albumin 3.3 Globulin 4.4 H Lipase 22 Serum , Qual NEGATIVE Urine Color Yellow Urine Clarity Clear Urine pH 6.0 Ur Specific [place] 1.020 Urine Protein 15 H Urine Glucose (UA) Normal Urine Ketones 5 H Urine Occult Blood 10 H Urine Nitrite Negative Urine Bilirubin Negative Urine Urobilinogen Normal Ur Leukocyte Esterase 100 H Urine RBC 0 SEEN Urine WBC 5-10 SEEN Ur Squamous Epith Cells 0-5 SEEN Urine Bacteria RARE Hyaline Casts 0-5 SEEN Urine Mucus 0 SEEN Urine Opiates Screen NEGATIVE Urine Methadone Screen NEGATIVE Ur Barbiturates Screen NEGATIVE Ur Phencyclidine Scrn NEGATIVE Ur Amphetamines Screen NEGATIVE MDMA (Ecstasy) Screen NEGATIVE U Benzodiazepines Scrn NEGATIVE Urine Cocaine Screen NEGATIVE U Cannabinoids Screen POSITIVE H Ur Drug Screen Comment Ethyl Alcohol < 3.0 11/05/22 00:12 WBC 17.1 H Corrected WBC RBC 5.27 Hgb 11.3 L Hct 39.8 MCV 75.5 L MCH 21.4 L MCHC 28.4 L RDW Std Deviation 44.9 H RDW Coeff of Farshad 16.7 H Plt Count 307 MPV 9.3 Immature Gran % (Auto) 0.600 Neut % (Auto) 78.4 H Lymph % (Auto) 12.6 L Alpine % (Auto) 7.8 Eos % (Auto) 0.1 Baso % (Auto) 0.5 Absolute Neuts (auto) 13.4 H Absolute Lymphs (auto) 2.15 Total Counted Neutrophils % (Manual) Band Neutrophils % Lymphocytes % (Manual) Monocytes % (Manual) Eosinophils % (Manual) Basophils % (Manual) Metamyelocytes % Myelocytes % Promyelocytes % Blast Cells % Plasma Cell % (Manual) Other Cells % Nucleated RBC % 0 Nucleated RBCs/100 WBC Differential Comment Diff Path Review Hypersegmented Neuts Atypical Lymphocytes Reactive Lymphocytes Smudge Cells Toxic Granulation Toxic Vacuolation Dohle Bodies Miles Rods Platelet Estimate Plt Morphology Comment RBC Morphology Polychromasia Hypochromasia Poikilocytosis Basophilic Stippling Anisocytosis Microcytosis Macrocytosis Spherocytes Sickle Cells Target Cells Tear Drop Cells Ovalocytes Stomatocytes [place] Bodies [place] Cells Bite Cells Crenated Cell Acanthocytes (Spur) Rouleaux Schistocytes Sodium Potassium Chloride Carbon Dioxide Anion Gap BUN Creatinine Est GFR (MDRD) Af Amer Est GFR (MDRD) Non-Af BUN/Creatinine Ratio Glucose Calcium Total Bilirubin Direct Bilirubin AST ALT Alkaline Phosphatase Troponin I High Sens Total Protein Albumin Globulin Lipase Serum , Qual Urine Color Urine Clarity Urine pH Ur Specific [place] Urine Protein Urine Glucose (UA) Urine Ketones Urine Occult Blood Urine Nitrite Urine Bilirubin Urine Urobilinogen Ur Leukocyte Esterase Urine RBC Urine WBC Ur Squamous Epith Cells Urine Bacteria Hyaline Casts Urine Mucus Urine Opiates Screen Urine Methadone Screen Ur Barbiturates Screen Ur Phencyclidine Scrn Ur Amphetamines Screen MDMA (Ecstasy) Screen U Benzodiazepines Scrn Urine Cocaine Screen U Cannabinoids Screen Ur Drug Screen Comment Ethyl Alcohol Radiography Chest X-Ray - ED: 1 View, Read by ED Physician, Chronic Changes and No Infiltrates Diagnostic Testing: Clinical Impression(s) from Imaging Studies Brain CT 11/04/22 21:58 IMPRESSION: No acute intracranial hemorrhage detected. No mass lesion. Sinus disease compared to prior study. This is somewhat high density which could reflect inspissated secretions or fungal colonization. Electronically Signed: Carroll Melvin MD at 23:00 EDT , Chest X-Ray 11/04/22 22:32 IMPRESSION: Hiatus hernia. Low volumes. Presumed left basilar atelectasis. Electronically Signed: Carroll Melvin MD at 23:05 EDT , EKG Initial EKG: Attestation: I personally reviewed and interpreted this EKG as follows: Interpretation: Sinus Rhythm (Sinus 87 with no acute ischemia.) Treatment and Re-Evaluation :: CT scan of the head reveals no intracranial hemorrhage. No mass. Chest x-ray per my interpretation feels chronic changes with no focal infiltrate. Radiology interpretation reviewed and agrees. CBC reveals a white count of 17.1 with 78% neutrophils. Hemoglobin is 11.3. Chemistry studies reveal normal renal function. Glucose is 166. LFTs unremarkable. Troponin is less than 3. test is negative. Urinalysis reveals no evidence of infection. EtOH is less than 3. Tox screen is positive only for cannabinoids. On repeat evaluation patient is still very sleepy. Nursing staff states that she did start to wake up more as they were getting blood work and straight cathing her, however at this time she is not opening her eyes or talking to me. She was sent out to oncoming physician for further evaluation. Family at bedside has been updated on test results and knows that once we get her awake and able to ambulate she can be discharged home. Discharge Plan Triage Chief Complaint: Overdose ED Provider: Kiersten Fernández Dx/Rx/DC Orders Clinical Impression: Marijuana use, Altered mental status Instructions: ED ALOC, ED Marijuana Abuse Prescriptions: No Action clindamycin HCl 150 MG capsule 300 mg PO 4X/DAY Qty: 80 0RF naproxen 500 MG tablet 500 mg PO BID PRN Qty: 20 0RF doxycycline monohydrate 100 MG capsule 100 mg PO BID Qty: 20 0RF doxycycline monohydrate 100 mg capsule 100 mg PO BID Qty: 10 0RF naproxen 500 mg tablet 500 mg PO BID Qty: 14 0RF Primary Care Provider: Care Physician,No Primary Referrals: Yimi Linder MD [Med Staff - Facing Slitter] - As Needed Care Physician,No Primary [Primary Care Provider] - Disposition Disposition: Home, Self Care
[2022-11-05 00:28] LABS: Absolute Lymphocyte Count 2.15 X10^3/uL (0.83-4.51); Absolute Neutrophil Count 13.4 X10^3/uL (2.0-7.7); Basophil# 0.09 X10^3/uL; Basophil% 0.5 % (0-1); Eosinophil# 0.02 X10^3/uL; Eosinophils% 0.1 % (0-5); Hematocrit 39.8 % (37-47); Hemoglobin 11.3 g/dL (12.0-15.0); Lymphocyte # 2.15 X10^3/ul (0.83-4.51); Lymphocyte % 12.6 % (19-41); Mean Corp Hgb Conc 28.4 g/dL (32-36); Mean Corpuscular Hgb 21.4 pg (27.0-32.0); Mean Corpuscular Volume 75.5 fL (81-99); Mean Platelet Vol. 9.3 fl (6.2-12.0); Monocyte# 1.33 X10^3/uL; Monocyte% 7.8 % (0-10); NRBC Flagged by Analyzer 0 % (0-5); Neutrophil # 13.43 X10^3/uL (2.7-7.7); Neutrophil % 78.4 % (47-70); Platelet Count 307 K/mm3 (150-450); RBC Distribution Width CV 16.7 % (11.6-14.6); RBC Distribution Width SD 44.9 fl (35.1-43.9); Red Blood Count 5.27 M/mm3 (4.2-5.4); White Blood Count 17.1 K/mm3 (4.4-11.0)
[2022-11-05 00:29] LABS: Bacteria RARE /hpf (None Seen); Squamous Epithelial Cells - UA 0-5 SEEN /hpf (5-10); White Blood Cells 5-10 SEEN /hpf (0-5)
[2022-11-05 00:30] LABS: Hyaline Cast 0-5 SEEN /lpf (0-5)
[2022-11-05 00:33] LABS: Amphetamine Urine VISTA NEGATIVE (<1000 ng/mL); Barbiturate Urine VISTA NEGATIVE (< 200 ng/mL); Benzodiazepine Urine VISTA NEGATIVE (< 200 ng/mL); Cocaine Urine VISTA NEGATIVE (< 300 ng/mL); Ecstacy Urine VISTA NEGATIVE (< 500 ng/mL); Methadone Urine VISTA NEGATIVE (< 300 ng/mL); PCP Urine VISTA NEGATIVE (< 25 ng/mL); THC Urine VISTA POSITIVE (< 50 ng/mL); Vista UDS pH Range 5
[2022-11-05 00:48] VITALS: BP 142/79; PULSE 80; RESP 17; O2SAT 98
[2022-11-05 01:44] VITALS: BP 130/76; PULSE 72; RESP 13; O2SAT 95
[2022-11-05 03:04] VITALS: BP 117/75; PULSE 73; RESP 15; O2SAT 95
[2022-11-05 07:10] VITALS: BP 140/70; PULSE 75; RESP 15; O2SAT 97
== END 2022-11-05 07:21 | disposition home or self-care (01) ==
PROVIDERS: Emergency Provider Emergency Medicine; Visit Provider Emergency Medicine
DX: R41.82 Altered mental status, unspecified (principal); F17.210 Nicotine dependence, cigarettes, uncomplicated; F12.90 Cannabis use, unspecified, uncomplicated
CPT/HCPCS: 36415; 70450; 71045; 80048; 80076; 80307; 81001; 82077; 83690; 84484; 84703; 85025; 93005; 96360; 96361; 99285; J7030; A4216